=== PATIENT | male | born 1950 | race Caucasian/White ===

== ENCOUNTER → 2019-01-09 | Outpatient (CLI) | payer OTHER ==
[~2019-01-09] MED LIST: ATEN50TA; CEPH-37; HYDR-1421; IOHEXOL 350 MG/ML 100ML IJ ONE; MORP15TA; OMEP20TA44
[2019-01-09 10:16] VITALS: BP 176/110
--- NOTE | 2019-01-09 10:16 | NUR ---
[facility] ARRIVED [facility] FOR [facility] CHEST WITH CONTRAST R/O PE. V/S OBTAINED PT NOT IN ANY DISTRESS
--- NOTE | 2019-01-09 10:20 | NUR ---
IV insertion IV access obtained, via clean sterile technique by inserting 20 gauge catheter at after attempt(s). IV secured properly. No trauma to site. Patient tolerated procedure well. STARTED BY MELVIN RILEY
--- NOTE | 2019-01-09 11:45 | NUR ---
IV removal IV DC'd with sterile technique, catheter fully intact. Pressure dressing applied to site. Patient tolerated procedure well. Discharged with aftercare instructions per MD. NOTE:
[2019-01-09 11:50] VITALS: BP 168/104
--- NOTE | 2019-01-09 11:50 | NUR ---
Discharge Instructions See e-MAR for any mediations given with this visit. Patient education given on disease process. Patient verbalized understanding. Previous labs reviewed. Patient discharged in stable condition with after care instructions and follow up appointment.
== END | disposition home or self-care (01) ==
LOC: Rad HDHVI 10:10
PROVIDERS: ATTEND Internal Medicine Cardiovascular Disease
DX: R94.4 Abnormal results of kidney function studies (principal)
CPT/HCPCS: 36415; 71275; 82565; G0463; Q9967

== ENCOUNTER → 2019-01-16 | Outpatient (CLI) | payer OTHER ==
[~2019-01-16] MED LIST changes: -IOHEXOL 350 MG/ML 100ML IJ ONE
== END | disposition home or self-care (01) ==
LOC: Rad HDHVI 09:22
PROVIDERS: ATTEND Internal Medicine Cardiovascular Disease
DX: I63.9 Cerebral infarction, unspecified (principal); R06.02 Shortness of breath; R00.1 Bradycardia, unspecified; R07.89 Other chest pain; I10 Essential (primary) hypertension
CPT/HCPCS: 93306; 93880